=== PATIENT | male | born 1980 | race Caucasian/White ===

== ENCOUNTER 2018-01-23 09:09 | Day surgery (SDC) | payer OTHER ==
[~2018-01-23 09:09] MED LIST: CEFAZOLIN 2 GM/50 ML (PMX) 50 ML IVPB; LIDOCAINE 2% (SDV) 5 ML INJ; SOD CHLORIDE 0.9% 1,000 ML IV
[2018-01-23] MEDS ORDERED: BUPIVACAINE 0.25% (MPF) 30 ML INJ (10:23)
[2018-01-23] MEDS ORDERED: SUCCINYLCHOLINE CHLORIDE 100 MG/5 ML SYG IV (10:42)
[2018-01-23] MEDS ORDERED: PROPOFOL 20 ML (10:42)
[2018-01-23] MEDS ORDERED: FENTAnyl 50 MCG/ML VIAL ×2 (10:42→11:27)
[2018-01-23] MEDS ORDERED: ROCURONIUM 50 MG INJ (10:42)
[2018-01-23] MEDS ORDERED: MIDAZOLAM 1 MG/ML 2 ML INJ (10:42)
[2018-01-23] MEDS ORDERED: ONDANSETRON 4 MG INJ (10:42)
[2018-01-23] MEDS ORDERED: DEXAMETHASONE 4 MG/ML 1 ML INJ (10:43)
[2018-01-23] MEDS ORDERED: CEFAZOLIN 1 GM INJ (10:51)
[2018-01-23] MEDS ORDERED: GLYCOPYRROLATE 0.4 MG INJ (11:27)
[2018-01-23] MEDS: BUPIVACAINE 0.25% (MPF) 30 ML INJ INJ (11:36)
[2018-01-23] MEDS: POLYMYXIN/BACITRACIN 1L IRRIG IRR (11:42)
[2018-01-23] MEDS ORDERED: NALOXONE (0.4 MG/ML) INJ (11:58)
[2018-01-23] MEDS: HYDROmorphONE (0.2 MG/ML) 10ML SYG IV ×3 (12:30→13:44)
[2018-01-23] MEDS ORDERED: MEPERIDINE 25 MG INJ IV (12:30)
[2018-01-23] MEDS: ONDANSETRON 4 MG INJ IV (12:30)
[2018-01-23] MEDS: HYDROCODONE/APAP (5/325) TAB PO (12:51)
== END 2018-01-23 15:12 | disposition home or self-care (01) ==
LOC: SDS 09:09
DX: K40.30 Unilateral inguinal hernia, with obstruction, without gangrene, not specified as recurrent (principal)
CPT/HCPCS: 49507